=== PATIENT | female | born 1990 | race Caucasian/White ===

== ENCOUNTER 2018-01-29 06:58 | Inpatient (IN) | payer OTHER, MEDICAID ==
[2018-01-29] MEDS ORDERED: Sodium Chloride 0.9% 10 ML Syringe FLUSH PRN ×2 (08:43→15:55)
[2018-01-29] MEDS ORDERED: Lactated Ringers 1,000 ML IV SCH (12:15)
[2018-01-29] MEDS ORDERED: Scopolamine 1.5 MG Transdermal Patch TOP ONE (14:09)
[2018-01-29] MEDS ORDERED: Oxytocin 10 Units/1 ML SDV IM ONE (15:30)
[2018-01-29] MEDS ORDERED: Lidocaine 1% 20 ML MDV INJECT ONE (17:24)
[2018-01-29] MEDS: Ibuprofen 600 MG Tab PO PRN (19:31)
[2018-01-29] MEDS: Docusate Sodium 100 MG Cap PO SCH (22:08)
[2018-01-30] MEDS: Ibuprofen 600 MG Tab PO PRN (08:04)
[2018-01-30] MEDS: Docusate Sodium 100 MG Cap PO SCH (09:33)
--- NOTE | 2018-01-30 15:28 | HP ---
ADMISSION DATE: 01/29/2018 HISTORY AND PHYSICAL LABOR AND DELIVERY NOTE HISTORY: Sophia Alexandre is a 27-year-old 2, para 1-0-0-1, female, 41 weeks' gestation, accurate by dates, admitted for induction of labor. CLINICAL INDICATIONS: Include increasing maternal discomfort, post date , 41 weeks' gestation, and suspicion for large weight . Risks and benefits discussed at length. Please see accompanying records. PHYSICAL EXAMINATION: NECK: Benign. Thyroid small. CHEST: Clear in all lung cevallos. HEART: Regular without ectopy or murmur. BREASTS: Symmetric, parous, without masses. : Uterus 38 cm, vertex presentation; 3 cm dilatation, 60% effaced, and -2 station. HOSPITAL COURSE: Admission for delivery recommended. Amniotomy was performed. She was placed at bedrest for a short time. Uterine contractions were moderate. She was up, ambulated, did well. Contractions became more effective, but little change by noon. It was elected to add Pitocin. Pitocin was started per protocol. Labor progressed well. She went about 2 cm every hour. When complete, at about 3 p.m., I was consulted. On exam, she completely dilated deeply in the pelvis, COLT presentation. Prepped and draped in the usual fashion. Over the course of 4 quality pushes, delivered over midline episiotomy, COLT position. Both nares and oropharynx were suctioned, delivered without difficulty, [place] position. No nuchal cord. Child pinked up nicely, was placed on mom's tummy for warming and resuscitation. About 45 seconds of cord observation. Cord pulsation ceased. Cord was clamped. Male infant, weight 814, score 9 and 9. Three cord vessels were identified. There was spontaneous placental separation, 3-cord vessels intact. Uterine tone was maintained by 10 units of intramuscular Pitocin. The perineum was inspected, free of extension, second degree only. It was infiltrated with lidocaine, repaired in complex fashion with 2-0 chromic suture. Results were excellent. Bimanual exam revealed uterus properly positioned. Rectal exam without conflict. No sponges were placed in the vagina. ASSESSMENT: 1. A 41-week intrauterine . 2. Amniotomy, Pitocin augmentation. 3. Vaginal delivery. 4. Second degree midline episiotomy. An 8-pound 14-ounce male , score 9 and 9. Nursing plan. Nutrition plan. PLAN: She will be on a routine course. Expect no problems or concerns. All should go well. Likely discharged tomorrow evening. /[id number] ACE/DHIRAJ
--- NOTE | 2018-01-30 15:28 | DISCH ---
DISCHARGE DATE: 01/30/2018 HISTORY: Sophia Alexandre is a 27-year-old, 2 female, two days . Up, doing wonderfully. Moderate cramping, minimal perineal discomfort. Ambulating without difficulty. PHYSICAL EXAMINATION: U-2, tone satisfactory. Breasts parous. Perineum intact. Hemoglobin and hematocrit 11.9/34.5. ASSESSMENT: day one, no problems. PLAN: All goes well, discharge home this evening. Discharge with vitamins, ibuprofen, comfort care and well being, observations and plans accordingly. vitamin, ibuprofen 600 q.i.d., appropriate limitations clearly outlined. /[id number] ACE/DHIRAJ
[2018-01-30 19:28] VITALS: BP 110/68
== END 2018-01-30 18:19 | disposition home or self-care (01) | DRG 775 ==
LOC: FB.OB 07:00 → OBSVTOIN 08:08
PROVIDERS: ADMIT Family Medicine; ATTEND Family Medicine
PROC: 10E0XZZ Delivery of Products of Conception, External Approach (ICD-10-PCS; principal; 2018-01-30)
PROC: 0W8NXZZ Division of Female Perineum, External Approach (ICD-10-PCS; 2018-01-30)
DX: O48.0 Post-term pregnancy (principal); Z3A.41 41 weeks gestation of pregnancy; Z37.0 Single live birth
CPT/HCPCS: 36415; 59300; 59409; 85014; 85018; A9270-GY; J2590; J7120